=== PATIENT | male | born 1980 | race Caucasian/White ===

== ENCOUNTER 2018-01-10 10:27 | Emergency (ER) | payer OTHER ==
[~2018-01-10] VITALS: Ht 172.7 cm; Wt 91.3 kg
[~2018-01-10 10:27] MED LIST: AUGMENTIN875 MG PO; BUSPAR5 MG PO; CEFDINIR300 MG PO; CELEBREX100 MG PO; CLONAZEPAM1 MG; CYCLOBENZAPRINE5 M1 PO; CYMBALTA30 MG; CYMBALTA60 MG PO; DESYREL100 MG PO; DOXYCYCLINE HY100 MG PO; FLAGYL500 MG PO; FLOMAX0.4 MG PO; IBUPROFEN800 MG PO; KEFLEX500 MG PO; KLONOPIN1 MG; KLONOPIN1 MG PO; LAMICTAL25 MG PO; LEVAQUIN500 MG PO; MOTRIN800 MG PO; NAPROSYN500 MG; NORCO 5/3251 TABLET PO; OXYCODONE HCL5 MG PO; PERCOCET 5/31 TABLET PO; PROPOXYPHEN-AP1 EAC2 PO; TORADOL10 MG PO
[2018-01-10 11:06] LABS: HEMOGLOBIN 18.1 G/DL (12.5-16.6); MCH 31.3 PG (29.0-34.0); MCHC 34.8 G/DL (30.0-36.0); PLATELET COUNT 258 K/uL (156-360); RBC DIS.WIDTH-CV 13.2 % (11.8-14.6); RED BLOOD COUNT 5.78 M/uL (4.00-5.50); WHITE BLOOD COUNT 13.7 K/uL (4.1-10.2)
[2018-01-10 11:07] LABS: CHLORIDE 101 mEq/L (99-109); POTASSIUM 4.5 mEq/L (3.7-5.4)
[2018-01-10 11:08] LABS: SODIUM 139 mEq/L (136-147)
[2018-01-10 11:09] LABS: GLUCOSE 126 mg/dL (70-99)
[2018-01-10 11:13] LABS: GFR ESTIMATE (CALCULATED) > 59 mL/min/ (58.99-99999)
[2018-01-10 11:14] LABS: UREA NITROGEN (BUN) 11 mg/dL (9-23)
[2018-01-10 12:42] LABS: APPEARANCE SL.HAZY ((CLEAR)); BILIRUBIN NEGATIVE; BLOOD LARGE; COLOR AMBER ((YELLOW)); GLUCOSE (STRIP) NEGATIVE; KETONES NEGATIVE; LEUKOCYTES TRACE; NITRITE NEGATIVE; PROTEIN (STRIP) 100; SPECIFIC GRAVITY 1.025 (1.000-1.030)
[2018-01-10 13:06] LABS: BACTERIA 1+ /HPF; EPITHELIAL CELLS NONE SEEN /HPF; MUCUS 2+ /LPF; RED BLOOD CELLS TNTC /HPF (0-5); UCUL ADDED? YES; WHITE BLOOD CELLS 0-5 /HPF (0-5)
[2018-01-10] MEDS ORDERED: CIPRO500 MG PO (14:04)
[2018-01-10] MEDS ORDERED: FLOMAX0.4 MG PO (14:04)
[2018-01-10] MEDS ORDERED: PERCOCET 5/31 TABLET PO (14:04)
[2018-01-10] MEDS ORDERED: ZOFRAN ODT4 MG PO (14:04)
[2018-01-10 14:17] VITALS: BP 140/74
== END 2018-01-10 14:17 | disposition home or self-care (01) ==
LOC: EME 10:27
DX: N13.2 Hydronephrosis with renal and ureteral calculous obstruction (principal); J45.909 Unspecified asthma, uncomplicated; F31.9 Bipolar disorder, unspecified; Z87.442 Personal history of urinary calculi; Z85.6 Personal history of leukemia; F17.200 Nicotine dependence, unspecified, uncomplicated; Z88.2 Allergy status to sulfonamides
CPT/HCPCS: 74176; 80048; 81003; 85027; 87086; 99281; 99285; J1885; J2405; J3010; J7030